=== PATIENT | female | born 1955 | race Caucasian/White ===

== ENCOUNTER 2018-07-15 16:20 | Emergency (ER) | payer BC, OTHER ==
[~2018-07-15] VITALS: Ht 162.6 cm; Wt 92.5 kg
[~2018-07-15 16:20] MED LIST: ALENDRONATE SOD70 MG PO; FISH OIL 1,0001 EAC2 PO; TYLENOL WITH C1 EACH PO; VIT C PO; VIT D PO; VIT E PO
== END 2018-07-15 17:15 | disposition home or self-care (01) ==
LOC: FSED 16:20
DX: S80.12XA Contusion of left lower leg, initial encounter (principal); W22.09XA Striking against other stationary object, initial encounter; Y99.0 Civilian activity done for income or pay; I10 Essential (primary) hypertension
CPT/HCPCS: 99283

== ENCOUNTER 2024-02-05 11:54 | Inpatient (IN) | payer MEDICARE ==
[~2024-02-05] VITALS: Ht 162.6 cm; Wt 92.1 kg
[~2024-02-05 11:54] MED LIST changes: +ALLERGY RELIEF4 MG PO; +ASPIRIN81 MG PO; +ESTRADIOL1 MG PO; +FEROSUL325 MG PO; +HYDROCHLOROTHIA25 MG PO; +LOSARTAN POTAS100 MG PO; +MELOXICAM7.5 MG PO; +MULTI-VITAMIN1 EACH PO; +MYSOLINE50 MG PO; +NAPROXEN250 MG PO; +OSTEO BI-FLEX1 EAC2 PO; +PREDNISONE5 MG PO; +ZEGERID 20 MG1 EACH PO
[2024-02-05 12:37] VITALS: TEMP 97.8
[2024-02-05] MEDS ORDERED: SODIUM CHLORIDE FLUSH 10 ML SYR IV PRN (12:45)
[2024-02-05] MEDS: ASPIRIN 81 MG CHEW TAB PO ONE (13:02)
[2024-02-05 13:37] LABS: BASOPHILS % 0.2 % (0.0-1.0); EOSINOPHILS # (AUTO) 0.1 (0.0-0.4); EOSINOPHILS % 0.5 % (0.0-6.0); HEMATOCRIT 31.2 % (34.2-44.1); HEMOGLOBIN 10.4 g/dL (12.0-16.0); LYMPHOCYTES # (AUTO) 0.8 (1.0-3.2); LYMPHOCYTES % 5.5 % (18.0-39.1); MEAN CORPUSCULAR HEMOGLOBIN 30.1 pg (28-32); MEAN CORPUSCULAR HGB CONC 33.3 g/dL (31-35); MEAN CORPUSCULAR VOLUME 90.2 fL (81-99); MONOCYTES # (AUTO) 0.7 (0.2-0.8); MONOCYTES % 5.2 % (4.4-11.3); NEUTROPHILS # (AUTO) 11.9 (2.1-6.9); NEUTROPHILS % 88.1 % (38.7-80.0); PLATELET COUNT 291 x10e3/uL (140-360); RED BLOOD COUNT 3.46 x10e6/uL (3.6-5.1); RED CELL DISTRIBUTION WIDTH 14.8 % (11.7-14.4); WHITE BLOOD COUNT 13.55 x10e3/uL (4.8-10.8)
[2024-02-05 13:53] LABS: ALANINE AMINOTRANSFERASE 71 IU/L (0-55); ALBUMIN 3.6 g/dL (3.5-5.0); ALBUMIN/GLOBULIN RATIO 1.2 (0.8-2.0); ALKALINE PHOSPHATASE 102 IU/L (40-150); ANION GAP 20.5 mmol/L (8-16); BILIRUBIN,TOTAL 0.4 mg/dL (0.2-1.2); BLOOD UREA NITROGEN 87 mg/dL (7-26); BUN/CREATININE RATIO 38 (6-25); CARBON DIOXIDE 24 mmol/L (22-29); CHLORIDE 94 mmol/L (98-107); CREATININE, SERUM 2.28 mg/dL (0.57-1.11); EST GLOMERULAR FILTRATION RATE 23 ML/MIN (>=60); GLUCOSE 239 mg/dL (74-118); SODIUM 136 mmol/L (136-145); TOTAL PROTEIN 6.5 g/dL (6.5-8.1)
[2024-02-05 14:03] LABS: POTASSIUM 2.5 mmol/L (3.5-5.1); TROPONIN I < 0.001 ng/mL (0-0.300)
[2024-02-05] MEDS: POTASSIUM CHLORIDE 20 MEQ TAB CR PO STA (14:17)
[2024-02-05] MEDS: POTASSIUM CHLORIDE 20MEQ/100ML 200 ML IV ONE (14:18)
[2024-02-05] MEDS ORDERED: LASIX20 MG PO (14:27)
[2024-02-05 14:28] VITALS: PULSE 87; RESP 16
[2024-02-05] MEDS ORDERED: SODIUM CHLORIDE 0.9% 1000ML 1,000 ML ONE (14:45)
[2024-02-05] MEDS: SODIUM CHLORIDE 0.9% 1000ML 1,000 ML IV SCH (14:47)
[2024-02-05] MEDS ORDERED: SODIUM CHLORIDE 0.9% 1000ML 1,000 ML IV SCH (15:15)
[2024-02-05 16:51] VITALS: BP 84/62; PULSE 72; RESP 16; TEMP 98; O2SAT 100
[2024-02-05] MEDS: ACETAMINOPHEN 325 MG TAB PO PRN (17:27)
[2024-02-05 19:57] VITALS: BP 76/49; PULSE 77; RESP 21; TEMP 97.9; O2SAT 98
[2024-02-05 21:00] VITALS: BP 76/49; PULSE 77; RESP 21; TEMP 97.9; O2SAT 98
[2024-02-05] MEDS: SODIUM CHLORIDE 0.9% 1000ML 1,000 ML IV ONE (21:06)
[2024-02-05 23:22] VITALS: BP 78/49; PULSE 69; RESP 20; TEMP 97.9; O2SAT 97
[2024-02-06] VITALS (8 sets, daily range): BP systolic 88–105; BP diastolic 48–65; PULSE 75–97; RESP 17–20; TEMP 97.4–98.4; O2SAT 95–100
[2024-02-06] MEDS: SODIUM CHLORIDE 0.9% 1000ML 1,000 ML IV ONE ×2 (01:00→05:35)
[2024-02-06 06:11] LABS: BASOPHILS % 0.4 % (0.0-1.0); EOSINOPHILS # (AUTO) 0.3 (0.0-0.4); HEMATOCRIT 26.9 % (34.2-44.1); HEMOGLOBIN 8.6 g/dL (12.0-16.0); LYMPHOCYTES # (AUTO) 0.8 (1.0-3.2); LYMPHOCYTES % 11.4 % (18.0-39.1); MEAN CORPUSCULAR VOLUME 93.7 fL (81-99); MONOCYTES # (AUTO) 0.5 (0.2-0.8); MONOCYTES % 6.8 % (4.4-11.3); NEUTROPHILS # (AUTO) 5.3 (2.1-6.9); NEUTROPHILS % 76.7 % (38.7-80.0); PLATELET COUNT 199 x10e3/uL (140-360); RED BLOOD COUNT 2.87 x10e6/uL (3.6-5.1); RED CELL DISTRIBUTION WIDTH 14.9 % (11.7-14.4); WHITE BLOOD COUNT 6.93 x10e3/uL (4.8-10.8)
[2024-02-06 06:49] LABS: ALBUMIN 2.8 g/dL (3.5-5.0); ALBUMIN/GLOBULIN RATIO 1.3 (0.8-2.0); ANION GAP 10.1 mmol/L (8-16); BILIRUBIN,TOTAL 0.4 mg/dL (0.2-1.2); CALCIUM 8.8 mg/dL (8.4-10.2); CREATININE, SERUM 1.47 mg/dL (0.57-1.11); TOTAL PROTEIN 4.9 g/dL (6.5-8.1)
[2024-02-06 06:50] LABS: POTASSIUM 3.1 mmol/L (3.5-5.1)
[2024-02-06] MEDS: METHYLPREDNISOLONE SOD SUCC 40 MG/ML VIAL 1ML IV SCH (09:17)
[2024-02-06] MEDS: POTASSIUM CHLORIDE 10MEQ EA PO ONE (10:18)
[2024-02-06] MEDS: Morphine 2mg Syringe 2 MG/ML SYR IV PRN (10:28)
[2024-02-06] MEDS: ONDANSETRON HCL INJ 2MG/ML 2ML 2 MG/ML VIAL IV PRN (11:38)
[2024-02-06] MEDS: SODIUM CHLORIDE 0.9% 1000ML 1,000 ML IV SCH (15:58)
[2024-02-07] VITALS (7 sets, daily range): BP systolic 100–136; BP diastolic 55–92; PULSE 80–104; RESP 16–21; TEMP 97.2–98.5; O2SAT 99–100
[2024-02-07 05:29] LABS: BASOPHILS % 0.1 % (0.0-1.0); EOSINOPHILS % 0.5 % (0.0-6.0); HEMOGLOBIN 8.9 g/dL (12.0-16.0); LYMPHOCYTES # (AUTO) 0.9 (1.0-3.2); LYMPHOCYTES % 11.3 % (18.0-39.1); MEAN CORPUSCULAR HEMOGLOBIN 29.7 pg (28-32); MEAN CORPUSCULAR HGB CONC 30.7 g/dL (31-35); MEAN CORPUSCULAR VOLUME 96.7 fL (81-99); MONOCYTES # (AUTO) 0.4 (0.2-0.8); MONOCYTES % 4.8 % (4.4-11.3); NEUTROPHILS # (AUTO) 6.4 (2.1-6.9); NEUTROPHILS % 82.8 % (38.7-80.0); PLATELET COUNT 219 x10e3/uL (140-360); RED CELL DISTRIBUTION WIDTH 15.5 % (11.7-14.4); WHITE BLOOD COUNT 7.78 x10e3/uL (4.8-10.8)
[2024-02-07 06:00] LABS: ALBUMIN 2.9 g/dL (3.5-5.0); ALBUMIN/GLOBULIN RATIO 1.3 (0.8-2.0); ANION GAP 13.1 mmol/L (8-16); BILIRUBIN,TOTAL 0.3 mg/dL (0.2-1.2); CALCIUM 7.7 mg/dL (8.4-10.2); CREATININE, SERUM 0.82 mg/dL (0.57-1.11); MAGNESIUM 1.8 MG/DL (1.3-2.1); POTASSIUM 4.1 mmol/L (3.5-5.1); TOTAL PROTEIN 5.1 g/dL (6.5-8.1)
[2024-02-07] MEDS: NYSTATIN 15 GM POWDER UD BTL TOP SCH (09:20)
[2024-02-07] MEDS: BALSAM PERU/CASTOR OIL 60 GM OINT...G. TP SCH (11:14)
[2024-02-07] MEDS: ENOXAPARIN SOD INJ 40 MG/0.4 ML SYR SC SCH (17:34)
[2024-02-08] VITALS (7 sets, daily range): BP systolic 106–139; BP diastolic 61–78; PULSE 90–105; RESP 18–20; TEMP 98.2–98.6; O2SAT 97–100
[2024-02-08] MEDS: PANTOPRAZOLE SOD 40 MG TABEC PO ONE (08:22)
[2024-02-08] MEDS ORDERED: BALSAM PERU/CASTOR OIL 60 GM OINT...G. TP SCH (09:00)
[2024-02-08] MEDS: NYSTATIN 15 GM POWDER UD BTL TOP SCH (17:16)
[2024-02-09] VITALS (7 sets, daily range): BP systolic 86–125; BP diastolic 40–90; PULSE 78–102; RESP 16–20; TEMP 97.5–98.9; O2SAT 97–100
[2024-02-09 05:24] LABS: BASOPHILS % 0.1 % (0.0-1.0); EOSINOPHILS # (AUTO) 0.1 (0.0-0.4); EOSINOPHILS % 0.8 % (0.0-6.0); HEMATOCRIT 29.7 % (34.2-44.1); HEMOGLOBIN 8.8 g/dL (12.0-16.0); LYMPHOCYTES # (AUTO) 1.1 (1.0-3.2); LYMPHOCYTES % 13.7 % (18.0-39.1); MEAN CORPUSCULAR HEMOGLOBIN 29.6 pg (28-32); MEAN CORPUSCULAR HGB CONC 29.6 g/dL (31-35); MONOCYTES # (AUTO) 0.3 (0.2-0.8); MONOCYTES % 4.1 % (4.4-11.3); NEUTROPHILS # (AUTO) 6.4 (2.1-6.9); NEUTROPHILS % 80.3 % (38.7-80.0); PLATELET COUNT 196 x10e3/uL (140-360); RED BLOOD COUNT 2.97 x10e6/uL (3.6-5.1); RED CELL DISTRIBUTION WIDTH 16.2 % (11.7-14.4)
[2024-02-09 05:48] LABS: ALBUMIN 2.8 g/dL (3.5-5.0); ALBUMIN/GLOBULIN RATIO 1.3 (0.8-2.0); ANION GAP 11.9 mmol/L (8-16); BILIRUBIN,TOTAL 0.2 mg/dL (0.2-1.2); CALCIUM 8.4 mg/dL (8.4-10.2); CREATININE, SERUM 0.8 mg/dL (0.57-1.11); MAGNESIUM 1.6 MG/DL (1.3-2.1); POTASSIUM 4.9 mmol/L (3.5-5.1)
[2024-02-09] MEDS: BALSAM PERU/CASTOR OIL 60 GM OINT...G. TP SCH (08:41)
[2024-02-10] VITALS (8 sets, daily range): BP systolic 110–142; BP diastolic 56–75; PULSE 78–103; RESP 16–21; TEMP 98.4–99; O2SAT 98–100
[2024-02-10 05:33] LABS: BASOPHILS % 0.4 % (0.0-1.0); EOSINOPHILS # (AUTO) 0.1 (0.0-0.4); EOSINOPHILS % 0.7 % (0.0-6.0); HEMATOCRIT 29.5 % (34.2-44.1); HEMOGLOBIN 8.9 g/dL (12.0-16.0); LYMPHOCYTES # (AUTO) 0.9 (1.0-3.2); LYMPHOCYTES % 11.2 % (18.0-39.1); MEAN CORPUSCULAR HEMOGLOBIN 30.3 pg (28-32); MEAN CORPUSCULAR HGB CONC 30.2 g/dL (31-35); MEAN CORPUSCULAR VOLUME 100.3 fL (81-99); MONOCYTES # (AUTO) 0.3 (0.2-0.8); MONOCYTES % 3.6 % (4.4-11.3); NEUTROPHILS # (AUTO) 6.7 (2.1-6.9); NEUTROPHILS % 83.1 % (38.7-80.0); PLATELET COUNT 197 x10e3/uL (140-360); RED BLOOD COUNT 2.94 x10e6/uL (3.6-5.1); RED CELL DISTRIBUTION WIDTH 16.1 % (11.7-14.4); WHITE BLOOD COUNT 8.04 x10e3/uL (4.8-10.8)
[2024-02-10 06:08] LABS: ALBUMIN 2.7 g/dL (3.5-5.0); ALBUMIN/GLOBULIN RATIO 1.2 (0.8-2.0); ANION GAP 9.5 mmol/L (8-16); BILIRUBIN,TOTAL 0.3 mg/dL (0.2-1.2); CALCIUM 8.6 mg/dL (8.4-10.2); CREATININE, SERUM 0.78 mg/dL (0.57-1.11); MAGNESIUM 1.6 MG/DL (1.3-2.1)
[2024-02-10 06:10] LABS: POTASSIUM 5.5 mmol/L (3.5-5.1)
[2024-02-10] MEDS: SOD POLYSTYRENE SULFONATE SUSP 15 GM/60 ML BTL PO ONE (15:51)
[2024-02-11] VITALS (8 sets, daily range): BP systolic 123–151; BP diastolic 62–83; PULSE 71–98; RESP 18–21; TEMP 97.8–98.4; O2SAT 97–100
[2024-02-11 05:37] LABS: BASOPHILS % 0.1 % (0.0-1.0); EOSINOPHILS # (AUTO) 0.1 (0.0-0.4); EOSINOPHILS % 0.6 % (0.0-6.0); HEMATOCRIT 29.6 % (34.2-44.1); HEMOGLOBIN 8.9 g/dL (12.0-16.0); LYMPHOCYTES % 10.6 % (18.0-39.1); MEAN CORPUSCULAR HEMOGLOBIN 30.1 pg (28-32); MEAN CORPUSCULAR HGB CONC 30.1 g/dL (31-35); MONOCYTES # (AUTO) 0.4 (0.2-0.8); MONOCYTES % 4.4 % (4.4-11.3); NEUTROPHILS # (AUTO) 7.6 (2.1-6.9); NEUTROPHILS % 83.2 % (38.7-80.0); PLATELET COUNT 196 x10e3/uL (140-360); RED BLOOD COUNT 2.96 x10e6/uL (3.6-5.1); WHITE BLOOD COUNT 9.08 x10e3/uL (4.8-10.8)
[2024-02-11 06:17] LABS: ALBUMIN 2.7 g/dL (3.5-5.0); ALBUMIN/GLOBULIN RATIO 1.2 (0.8-2.0); BILIRUBIN,TOTAL 0.2 mg/dL (0.2-1.2); CALCIUM 7.8 mg/dL (8.4-10.2); CREATININE, SERUM 0.75 mg/dL (0.57-1.11); POTASSIUM 4.7 mmol/L (3.5-5.1)
[2024-02-11 08:24] LABS: ANION GAP 12.7 mmol/L (8-16)
[2024-02-11] MEDS: THIAMINE HCL INJ 100 MG/ML 2ML VIAL IV SCH (15:17)
[2024-02-12] VITALS (8 sets, daily range): BP systolic 98–138; BP diastolic 64–80; PULSE 79–100; RESP 17–20; TEMP 98.4–98.8; O2SAT 98–99
[2024-02-12] MEDS: METHYLPREDNISOLONE SOD SUCC 40 MG/ML VIAL 1ML IV SCH (07:47)
[2024-02-13] VITALS (8 sets, daily range): BP systolic 98–209; BP diastolic 51–157; PULSE 79–105; RESP 17–20; TEMP 97.1–98.9; O2SAT 98–100
[2024-02-13] MEDS ORDERED: BISACODYL 5 MG TAB EC PO ONE (09:00)
[2024-02-13] MEDS ORDERED: BISACODYL 5 MG TAB EC PO SCH (09:00)
[2024-02-13] MEDS: PRIMIDONE 50 MG TAB PO SCH (09:54)
[2024-02-13] MEDS: BISACODYL 5 MG TAB EC PO SCH (10:31)
[2024-02-14] VITALS (8 sets, daily range): BP systolic 99–126; BP diastolic 50–70; PULSE 88–118; RESP 16–18; TEMP 97.8–99.3; O2SAT 96–100
[2024-02-14 08:13] LABS: CALCIUM 8.5 mg/dL (8.4-10.2); CREATININE, SERUM 0.72 mg/dL (0.57-1.11); POTASSIUM 3.8 mmol/L (3.5-5.1)
[2024-02-14 08:33] LABS: ANION GAP 11.6 mmol/L (8-16)
[2024-02-15] VITALS (8 sets, daily range): BP systolic 102–120; BP diastolic 49–69; PULSE 85–100; RESP 18–21; TEMP 98–98.9; O2SAT 98–100
[2024-02-15 05:01] LABS: BASOPHILS % 0.1 % (0.0-1.0); EOSINOPHILS # (AUTO) 0.3 (0.0-0.4); EOSINOPHILS % 3.8 % (0.0-6.0); HEMATOCRIT 28.7 % (34.2-44.1); HEMOGLOBIN 8.8 g/dL (12.0-16.0); MEAN CORPUSCULAR HEMOGLOBIN 29.8 pg (28-32); MEAN CORPUSCULAR HGB CONC 30.7 g/dL (31-35); MEAN CORPUSCULAR VOLUME 97.3 fL (81-99); MONOCYTES # (AUTO) 0.7 (0.2-0.8); NEUTROPHILS # (AUTO) 4.9 (2.1-6.9); NEUTROPHILS % 71.1 % (38.7-80.0); PLATELET COUNT 162 x10e3/uL (140-360); RED BLOOD COUNT 2.95 x10e6/uL (3.6-5.1); RED CELL DISTRIBUTION WIDTH 16.2 % (11.7-14.4); WHITE BLOOD COUNT 6.88 x10e3/uL (4.8-10.8)
[2024-02-15 05:24] LABS: CALCIUM 7.9 mg/dL (8.4-10.2); CREATININE, SERUM 0.68 mg/dL (0.57-1.11)
[2024-02-16] VITALS (8 sets, daily range): BP systolic 92–117; BP diastolic 54–75; PULSE 74–91; RESP 18–20; TEMP 98–98.6; O2SAT 99–100
[2024-02-17] VITALS (7 sets, daily range): BP systolic 100–136; BP diastolic 52–89; PULSE 83–92; RESP 16–18; TEMP 98.3–98.7; O2SAT 96–100
[2024-02-17] MEDS: SODIUM CHLORIDE 0.9% 250ML 250 ML ONE (08:36)
[2024-02-17] MEDS: BISACODYL 10 MG SUPP PR ONE (14:07)
[2024-02-17] MEDS: Morphine 2mg Syringe 2 MG/ML SYR IV PRN (14:13)
[2024-02-18] VITALS (9 sets, daily range): BP systolic 93–148; BP diastolic 52–80; PULSE 72–94; RESP 18–20; TEMP 98–98.8; O2SAT 98–100
[2024-02-19 06:58] VITALS: BP 101/53; PULSE 79; RESP 18; TEMP 98.3; O2SAT 100
[2024-02-19 09:00] VITALS: BP 101/53; PULSE 79; RESP 18; TEMP 98.3; O2SAT 100
[2024-02-19 12:00] VITALS: BP 97/58; PULSE 90; RESP 20; TEMP 98.3; O2SAT 99
[2024-02-19 15:28] LABS: BASOPHILS % 0.3 % (0.0-1.0); EOSINOPHILS # (AUTO) 0.2 (0.0-0.4); EOSINOPHILS % 2.8 % (0.0-6.0); HEMATOCRIT 27.1 % (34.2-44.1); HEMOGLOBIN 8.3 g/dL (12.0-16.0); MEAN CORPUSCULAR HEMOGLOBIN 30.6 pg (28-32); MEAN CORPUSCULAR HGB CONC 30.6 g/dL (31-35); MONOCYTES # (AUTO) 0.6 (0.2-0.8); MONOCYTES % 7.7 % (4.4-11.3); NEUTROPHILS # (AUTO) 5.6 (2.1-6.9); NEUTROPHILS % 74.7 % (38.7-80.0); PLATELET COUNT 173 x10e3/uL (140-360); RED BLOOD COUNT 2.71 x10e6/uL (3.6-5.1); RED CELL DISTRIBUTION WIDTH 16.2 % (11.7-14.4); WHITE BLOOD COUNT 7.45 x10e3/uL (4.8-10.8)
[2024-02-19 15:49] LABS: ALBUMIN 2.7 g/dL (3.5-5.0); ALBUMIN/GLOBULIN RATIO 1.1 (0.8-2.0); ANION GAP 11.1 mmol/L (8-16); BILIRUBIN,TOTAL 0.2 mg/dL (0.2-1.2); CALCIUM 8.1 mg/dL (8.4-10.2); CREATININE, SERUM 0.8 mg/dL (0.57-1.11); MAGNESIUM 1.8 MG/DL (1.3-2.1); POTASSIUM 4.1 mmol/L (3.5-5.1); TOTAL PROTEIN 5.2 g/dL (6.5-8.1)
[2024-02-19 16:55] VITALS: BP 115/57; PULSE 87; RESP 18; TEMP 98.8; O2SAT 99
[2024-02-19 20:00] VITALS: BP 101/53; PULSE 83; RESP 17; TEMP 98.4; O2SAT 100
[2024-02-20] VITALS (9 sets, daily range): BP systolic 103–116; BP diastolic 46–71; PULSE 78–110; RESP 16–22; TEMP 98.3–98.8; O2SAT 98–100
[2024-02-20] MEDS ORDERED: LOPERAMIDE HCL 2 MG CAP PO PRN (05:15)
[2024-02-21] VITALS (8 sets, daily range): BP systolic 96–108; BP diastolic 46–75; PULSE 77–92; RESP 16–20; TEMP 97.5–99; O2SAT 98–100
[2024-02-22] VITALS (8 sets, daily range): BP systolic 95–121; BP diastolic 46–68; PULSE 82–92; RESP 17–20; TEMP 97.8–99.3; O2SAT 98–100
[2024-02-22] MEDS: NYSTATIN 15 GM POWDER UD BTL TOP SCH (16:10)
[2024-02-23] VITALS (7 sets, daily range): BP systolic 93–118; BP diastolic 49–68; PULSE 76–90; RESP 16–20; TEMP 97.9–98.8; O2SAT 90–100
[2024-02-23] MEDS: CLOTRIMAZOLE/BETAMETHASONE 45 GM CR TP PRN (09:10)
[2024-02-23] MEDS: ESTRADIOL 1 MG TAB PO SCH (09:10)
[2024-02-23] MEDS: FERROUS SULFATE 325 MG TAB PO SCH (09:11)
[2024-02-23] MEDS: LOSARTAN POTASSIUM 100 MG TAB PO SCH (09:11)
[2024-02-23] MEDS: HYDROCHLOROTHIAZIDE 25 MG TAB PO SCH (09:11)
[2024-02-23] MEDS: MELOXICAM 7.5 MG TAB PO SCH (09:11)
[2024-02-23] MEDS: PREDNISONE 5 MG TAB PO SCH (09:11)
[2024-02-23] MEDS: FUROSEMIDE 20 MG TAB PO SCH (09:11)
[2024-02-24] VITALS: BP 102/56; PULSE 79; RESP 18; TEMP 98.7; O2SAT 100
[2024-02-24 04:00] VITALS: BP 97/54; PULSE 60; RESP 18; TEMP 98; O2SAT 98
[2024-02-24 07:51] VITALS: BP 99/61; PULSE 80; RESP 17; TEMP 98.5; O2SAT 100
[2024-02-24 08:00] VITALS: BP 104/41; PULSE 54; RESP 18; TEMP 98.5; O2SAT 100
[2024-02-24 11:19] VITALS: BP 103/74; PULSE 118; RESP 16; TEMP 98.3; O2SAT 98
[2024-02-24 16:07] VITALS: BP 102/57; PULSE 93; RESP 19; TEMP 97.8; O2SAT 98
[2024-02-25] MEDS ORDERED: THIAMINE HCL 100 MG TAB PO SCH (09:00)
== END 2024-02-24 17:51 | DRG 682 ==
LOC: ER 12:40 → ERHOLD 15:20 → MED/SURG3 16:16
PROVIDERS: ADMIT Internal Medicine; ATTEND Internal Medicine
DX: N17.9 Acute kidney failure, unspecified (principal); E43 Unspecified severe protein-calorie malnutrition; R07.89 Other chest pain; E87.6 Hypokalemia; G25.0 Essential tremor; E86.0 Dehydration; I95.9 Hypotension, unspecified; L89.152 Pressure ulcer of sacral region, stage 2; S50.312A Abrasion of left elbow, initial encounter; S80.212A Abrasion, left knee, initial encounter; W19.XXXA Unspecified fall, initial encounter; Y92.009 Unspecified place in unspecified non-institutional (private) residence as the place of occurrence of the external cause; M25.562 Pain in left knee; G70.1 Toxic myoneural disorders; T38.0X5A Adverse effect of glucocorticoids and synthetic analogues, initial encounter; Z79.52 Long term (current) use of systemic steroids; D64.9 Anemia, unspecified; R53.1 Weakness; R53.81 Other malaise; E87.5 Hyperkalemia; R63.0 Anorexia; E66.9 Obesity, unspecified; Z71.3 Dietary counseling and surveillance; Z68.34 Body mass index [BMI] 34.0-34.9, adult; G90.1 Familial dysautonomia [Riley-Day]; E03.9 Hypothyroidism, unspecified; K21.9 Gastro-esophageal reflux disease without esophagitis; M81.0 Age-related osteoporosis without current pathological fracture; D72.829 Elevated white blood cell count, unspecified; K59.00 Constipation, unspecified; R27.0 Ataxia, unspecified; J01.30 Acute sphenoidal sinusitis, unspecified; M48.02 Spinal stenosis, cervical region; M47.812 Spondylosis without myelopathy or radiculopathy, cervical region; Z11.52 Encounter for screening for COVID-19; Z60.2 Problems related to living alone; Z71.81 Spiritual or religious counseling; Z96.651 Presence of right artificial knee joint; Z79.899 Other long term (current) drug therapy
CPT/HCPCS: 36415; 70551; 71045; 72141; 80048; 80053; 83735; 83880; 84132; 84484; 85025; 93005; 94760; 99252; 99284; J1650; J2270; J2405; J2919; J3411; J3480; J7030; J7050; J7512; U0002

== ENCOUNTER 2025-05-14 14:30 | Emergency (ER) | payer MEDICARE ==
[~2025-05-14] VITALS: Ht 165.1 cm; Wt 90.7 kg
[~2025-05-14 14:30] MED LIST changes: +LASIX20 MG PO
[2025-05-14] MEDS: TETANUS/DIPHTHERIA TOX ADULT 0.5 ML SYR IM ONE (16:55)
[2025-05-14] MEDS ORDERED: DOXYCYCLINE HY100 MG PO (18:27)
[2025-05-14 18:48] VITALS: PULSE 63; RESP 18; TEMP 97.6
[2025-05-14 18:49] VITALS: BP 119/78; PULSE 63; RESP 18; O2SAT 99
== END 2025-05-14 18:52 | disposition home or self-care (01) ==
LOC: ER 15:14
DX: S51.812A Laceration without foreign body of left forearm, initial encounter (principal); S40.011A Contusion of right shoulder, initial encounter; W01.0XXA Fall on same level from slipping, tripping and stumbling without subsequent striking against object, initial encounter; Y93.01 Activity, walking, marching and hiking; Y92.89 Other specified places as the place of occurrence of the external cause; I10 Essential (primary) hypertension; K21.9 Gastro-esophageal reflux disease without esophagitis; Z87.442 Personal history of urinary calculi
CPT/HCPCS: 70450; 70486; 72125; 90714; 96372; 99284